=== PATIENT | male | born 1940 | race Caucasian/White ===

== ENCOUNTER 2019-11-24 03:48 | Emergency (ER) | payer MEDICARE ==
[~2019-11-24] VITALS: Ht 188 cm; Wt 118.2 kg
[2019-11-24 05:06] LABS: BASOPHILS % (AUTO) 0.5 % (0-1); EOSINOPHILS % (AUTO) 0.5 % (0-6); HEMATOCRIT 41.4 % (42.0-52.0); HEMOGLOBIN 14.2 g/dl (14.0-17.9); LYMPHOCYTES # (AUTO) 1.3 X10'3 (1.1-4.8); LYMPHOCYTES % (AUTO) 26.6 % (21-51); MEAN CORPUSCULAR HEMOGLOBIN 32.3 PG (27.0-31.0); MEAN CORPUSCULAR HGB CONC 34.2 g/dL (33.0-36.5); MEAN CORPUSCULAR VOLUME 94.5 FL (78-98); MEAN PLATELET VOLUME 8.5 FL (7.4-10.4); MONOCYTES # (AUTO) 0.7 X10'3 (0-0.9); MONOCYTES % (AUTO) 13.1 % (2-12); NEUTROPHILS % (AUTO) 59.3 % (42-75); PLATELET COUNT 100 X10'3 (140-440); RED BLOOD COUNT 4.38 X10'6 (4.70-6.10)
[2019-11-24 05:15] LABS: PARTIAL THROMBOPLASTIN TIME 29 SECONDS (22-32)
[2019-11-24 05:18] LABS: ALANINE AMINOTRANSFERASE 29 U/L (12-78); ALBUMIN 3.5 G/DL (3.4-5.0); ALBUMIN/GLOBULIN RATIO 0.9 (1.1-1.5); ALKALINE PHOSPHATASE 62 IU/L (46-116); ANION GAP 7 (8-16); ASPARTATE AMINO TRANSFERASE 21 U/L (10-37); BILIRUBIN,TOTAL 0.6 MG/DL (0.1-1.0); BLOOD UREA NITROGEN 16 MG/DL (7-18); BUN/CREATININE RATIO 15.5 (5.4-32.0); CALCIUM 8.4 MG/DL (8.5-10.1); CHLORIDE 105 MMOL/L (99-107); CREATININE 1.03 MG/DL (0.60-1.10); GLUCOSE 168 MG/DL (70-104); MAGNESIUM 1.8 MG/DL (1.5-2.4); POTASSIUM 3.9 MMOL/L (3.5-5.1); SODIUM 139 MMOL/L (135-145); TOTAL CARBON DIOXIDE 27.5 MMOL/L (24-32); TOTAL PROTEIN 7.2 G/DL (6.4-8.2); eGFR 70 ML/MIN
[2019-11-24] MEDS ORDERED: normal saline 1000ml 1,000 ML IV ONE (05:31)
[2019-11-24] MEDS ORDERED: normal saline 1000ML IV soln IVB ONE (05:35)
[2019-11-24] MEDS ORDERED: albuterol 2.5 MG/3 ML nebule CONTNEB PRN (05:35)
[2019-11-24] MEDS ORDERED: methylPREDNISolone sod succ 125mg/2ml vial IV ONE (05:35)
[2019-11-24 05:57] VITALS: BP 120/68
[2019-11-24] MEDS ORDERED: LEVO175T7 PO (07:04)
[2019-11-24] MEDS ORDERED: METO100T14 PO (07:04)
[2019-11-24] MEDS ORDERED: METF-438 PO (07:04)
[2019-11-24] MEDS ORDERED: GLIM2TAB3 PO (07:04)
[2019-11-24] MEDS ORDERED: MECL-111 PO (07:04)
[2019-11-24] MEDS ORDERED: GABA600T13 PO (07:04)
[2019-11-24] MEDS ORDERED: FURO40TA4 PO (07:04)
[2019-11-24] MEDS ORDERED: LANTUS SQ (07:04)
[2019-11-24] MEDS ORDERED: RANI-366 PO (07:04)
[2019-11-24] MEDS ORDERED: ESOM40CA49 PO (07:04)
[2019-11-24] MEDS ORDERED: OXYC-658 PO (07:04)
[2019-11-24] MEDS ORDERED: SENN-162 PO (07:04)
[2019-11-24] MEDS ORDERED: ALBU6.7H9 INH (07:20)
[2019-11-24] MEDS ORDERED: PRED20TA PO (07:20)
[2019-11-24] MEDS ORDERED: AZIT250T PO (07:21)
== END 2019-11-24 07:43 | disposition home or self-care (01) ==
LOC: ER 03:49
DX: I95.1 Orthostatic hypotension (principal); J44.1 Chronic obstructive pulmonary disease with (acute) exacerbation; R42 Dizziness and giddiness; I25.10 Atherosclerotic heart disease of native coronary artery without angina pectoris; E78.00 Pure hypercholesterolemia, unspecified; I10 Essential (primary) hypertension; E11.9 Type 2 diabetes mellitus without complications; Z95.0 Presence of cardiac pacemaker; Z98.61 Coronary angioplasty status; F17.200 Nicotine dependence, unspecified, uncomplicated; Z98.890 Other specified postprocedural states; Z88.5 Allergy status to narcotic agent; Z79.2 Long term (current) use of antibiotics; Z79.4 Long term (current) use of insulin; Z79.899 Other long term (current) drug therapy
CPT/HCPCS: 36415; 71045; 80053; 82948; 83735; 84484; 85025; 85610; 85730; 93005; 94644; 96361; 96374; 99285; J2930; J7030; J7050; 94640; 94760

== ENCOUNTER 2020-09-28 11:15 | Emergency (ER) | payer BC, MEDICARE ==
[~2020-09-28] VITALS: Ht 188 cm; Wt 122.7 kg
[~2020-09-28 11:15] MED LIST: ALBU6.7H9 INH; ESOM40CA49 PO; FURO40TA4 PO; GABA600T13 PO; GLIM2TAB6 PO; LANTUS SQ; LEVO175T7 PO; MECL-159 PO; METF-438 PO; METO100T14 PO; OXYC-658 PO; RANI-366 PO; SENN-263 PO
[2020-09-28] MEDS ORDERED: aspirin 81mg tab.chew PO ONE (11:25)
--- NOTE | 2020-09-28 11:31 | NUR ---
[employer] pacemaker
[2020-09-28 12:05] LABS: BASOPHILS % (AUTO) 0.7 % (0-1); EOSINOPHILS # (AUTO) 0.1 X10'3 (0-0.9); EOSINOPHILS % (AUTO) 1.2 % (0-6); HEMOGLOBIN 11.4 g/dl (14.0-17.9); LYMPHOCYTES # (AUTO) 1.4 X10'3 (1.1-4.8); LYMPHOCYTES % (AUTO) 24.2 % (21-51); MEAN CORPUSCULAR HEMOGLOBIN 26.7 PG (27.0-31.0); MEAN CORPUSCULAR HGB CONC 31.6 g/dL (33.0-36.5); MEAN CORPUSCULAR VOLUME 84.5 FL (78-98); MEAN PLATELET VOLUME 8.4 FL (7.4-10.4); MONOCYTES # (AUTO) 0.5 X10'3 (0-0.9); MONOCYTES % (AUTO) 9.1 % (2-12); NEUTROPHILS # (AUTO) 3.8 X10'3 (1.8-7.7); NEUTROPHILS % (AUTO) 64.8 % (42-75); PLATELET COUNT 166 X10'3 (140-440); RED BLOOD COUNT 4.26 X10'6 (4.70-6.10); RED CELL DISTRIBUTION WIDTH 18.1 % (11.5-14.5); WHITE BLOOD COUNT 5.8 X10'3 (4.5-11.0)
[2020-09-28 12:27] LABS: ALANINE AMINOTRANSFERASE 23 U/L (12-78); ALBUMIN 3.7 G/DL (3.4-5.0); ALBUMIN/GLOBULIN RATIO 0.9 (1.1-1.5); ALKALINE PHOSPHATASE 69 IU/L (46-116); ASPARTATE AMINO TRANSFERASE 20 U/L (10-37); BILIRUBIN,TOTAL 0.5 MG/DL (0.1-1.0); BLOOD UREA NITROGEN 16 MG/DL (7-18); CALCIUM 8.4 MG/DL (8.5-10.1); CREATININE 1.33 MG/DL (0.60-1.10); GLUCOSE 205 MG/DL (70-104); MAGNESIUM 1.4 MG/DL (1.5-2.4); TOTAL CARBON DIOXIDE 27.2 MMOL/L (24-32); TOTAL PROTEIN 7.7 G/DL (6.4-8.2); eGFR 52 ML/MIN
[2020-09-28 13:01] LABS: ANION GAP 10 (8-16); CHLORIDE 101 MMOL/L (99-107); POTASSIUM 3.8 MMOL/L (3.5-5.1); SODIUM 138 MMOL/L (135-145)
[2020-09-28] MEDS: magnesium 2GM in 50ml NS 50 ML IV SCH ×2 (13:11→14:00)
[2020-09-28 13:15] VITALS: BP 125/70
--- NOTE | 2020-09-28 14:15 | NUR ---
Pt called me to bedside, stating IV site is painful. IV site reddened wand warm to touch. IV discontinued, and IV started in R forearm.
[2020-09-28] MEDS ORDERED: MAGN400C PO (14:29)
[2020-09-28] MEDS ORDERED: ROSU40TA PO (22:36)
[2020-09-28] MEDS ORDERED: ASPI-1265 PO (22:36)
[2020-09-28] MEDS ORDERED: LOSA25TA96 PO (22:36)
[2020-09-28] MEDS ORDERED: PANT-47 PO (22:36)
[2020-09-28] MEDS ORDERED: levothyroxine PO (22:36)
[2020-09-28] MEDS ORDERED: APIX2.5T PO (22:36)
== END 2020-09-28 14:45 | disposition home or self-care (01) ==
LOC: ER 11:15
DX: T82.897A Other specified complication of cardiac prosthetic devices, implants and grafts, initial encounter (principal); I48.91 Unspecified atrial fibrillation; E83.42 Hypomagnesemia; I25.10 Atherosclerotic heart disease of native coronary artery without angina pectoris; E78.00 Pure hypercholesterolemia, unspecified; I10 Essential (primary) hypertension; J43.9 Emphysema, unspecified; E11.9 Type 2 diabetes mellitus without complications; Z95.0 Presence of cardiac pacemaker; Z98.890 Other specified postprocedural states; Z88.5 Allergy status to narcotic agent; Z79.899 Other long term (current) drug therapy; Z79.4 Long term (current) use of insulin
CPT/HCPCS: 36415; 71045; 80053; 83735; 83880; 85025; 93005; 96365; 96366; 99285; J3475

== ENCOUNTER 2020-09-28 21:14 | Inpatient (IN) | payer BC, MEDICAID ==
[~2020-09-28] VITALS: Ht 190.5 cm; Wt 91.8 kg
[~2020-09-28 21:14] MED LIST changes: +MAGN400C PO
--- NOTE | 2020-09-28 21:37 | NUR ---
His HR was 252 and his defib shocked him. heard. Pt hollared out.
--- NOTE | 2020-09-28 21:42 | NUR ---
[employer] Implantable defibrillator model [id number] serial : [id number]
[2020-09-28 21:48] LABS: ALANINE AMINOTRANSFERASE 23 U/L (12-78); ALBUMIN 3.5 G/DL (3.4-5.0); ALBUMIN/GLOBULIN RATIO 0.9 (1.1-1.5); ALKALINE PHOSPHATASE 74 IU/L (46-116); ANION GAP 8 (8-16); ASPARTATE AMINO TRANSFERASE 21 U/L (10-37); BILIRUBIN,TOTAL 0.5 MG/DL (0.1-1.0); BLOOD UREA NITROGEN 16 MG/DL (7-18); BUN/CREATININE RATIO 11.1 (5.4-32.0); CALCIUM 8.5 MG/DL (8.5-10.1); CHLORIDE 104 MMOL/L (99-107); CREATININE 1.44 MG/DL (0.60-1.10); GLUCOSE 206 MG/DL (70-104); POTASSIUM 3.7 MMOL/L (3.5-5.1); SODIUM 138 MMOL/L (135-145); TOTAL PROTEIN 7.3 G/DL (6.4-8.2); eGFR 47 ML/MIN
[2020-09-28] MEDS ORDERED: metoprolol tartrate 1mg/ml inj IV ONE (21:55)
--- NOTE | 2020-09-28 21:55 | NUR ---
CALLED ANSWERING SERVICE @21:[address] SOLANO
[2020-09-28 22:01] LABS: BASOPHILS % (AUTO) 0.7 % (0-1); EOSINOPHILS # (AUTO) 0.1 X10'3 (0-0.9); EOSINOPHILS % (AUTO) 1.3 % (0-6); HEMATOCRIT 34.2 % (42.0-52.0); LYMPHOCYTES # (AUTO) 1.6 X10'3 (1.1-4.8); LYMPHOCYTES % (AUTO) 25.8 % (21-51); MEAN CORPUSCULAR HEMOGLOBIN 27.1 PG (27.0-31.0); MEAN CORPUSCULAR HGB CONC 32.2 g/dL (33.0-36.5); MEAN CORPUSCULAR VOLUME 84.3 FL (78-98); MEAN PLATELET VOLUME 8.4 FL (7.4-10.4); MONOCYTES # (AUTO) 0.7 X10'3 (0-0.9); MONOCYTES % (AUTO) 10.4 % (2-12); NEUTROPHILS # (AUTO) 3.9 X10'3 (1.8-7.7); NEUTROPHILS % (AUTO) 61.8 % (42-75); PLATELET COUNT 152 X10'3 (140-440); RED BLOOD COUNT 4.06 X10'6 (4.70-6.10); RED CELL DISTRIBUTION WIDTH 18.2 % (11.5-14.5); WHITE BLOOD COUNT 6.4 X10'3 (4.5-11.0)
[2020-09-28] MEDS ORDERED: amiodarone 150mg/dext, iso-os 100 ML IV ONE (22:15)
[2020-09-28] MEDS ORDERED: potassium CL 10mEq/100ml bag 100 ML IV PRN ×2 (22:25)
[2020-09-28] MEDS ORDERED: magnesium 4gm in 100ml NS 100 ML IV PRN (22:25)
[2020-09-28] MEDS ORDERED: magnesium hydroxide 30ml (MOM) UD suspension PO PRN (22:25)
[2020-09-28] MEDS ORDERED: ondansetron/PF 4mg/2ml inj IV PRN (22:25)
[2020-09-28] MEDS ORDERED: mag hydrox/Alum hydrox/simeth 30ml oral suspension PO PRN (22:25)
[2020-09-28] MEDS ORDERED: acetaminophen 325mg tablet PO PRN ×2 (22:25)
[2020-09-28] MEDS ORDERED: magnesium 2GM in 50ml NS 50 ML IV PRN (22:25)
[2020-09-28] MEDS ORDERED: potassium Cl 20 mEq SR tablet PO PRN ×2 (22:25)
[2020-09-28] MEDS ORDERED: magnesium Cl slow-release 64mg tablet PO PRN (22:25)
[2020-09-28] MEDS ORDERED: levothyroxine PO (22:36)
[2020-09-28] MEDS ORDERED: LOSA25TA96 PO (22:36)
[2020-09-28] MEDS ORDERED: PANT-47 PO (22:36)
[2020-09-28] MEDS ORDERED: ASPI-1265 PO (22:36)
[2020-09-28] MEDS ORDERED: APIX2.5T PO (22:36)
[2020-09-28] MEDS ORDERED: ROSU40TA PO (22:36)
[2020-09-28] MEDS: amiodarone/D5 360MG/200ML BAG 200 ML IV SCH (22:42)
--- NOTE | 2020-09-28 23:31 | NUR ---
Patient in room ED 5. I have received report from Carlene ESCALANTE and had the opportunity to ask questions and assume patient care.
[2020-09-28] MEDS ORDERED: albuterol 2.5 MG/3 ML nebule NEB PRN (23:45)
[2020-09-28] MEDS ORDERED: dextrose 50%-water 50ml dispensing syringe IV PRN ×2 (23:50)
[2020-09-28] MEDS ORDERED: MESSAGE TO PHARMACY PO ONE (23:50)
[2020-09-28] MEDS ORDERED: dextrose ORAL solution 15 GM/59 ML bottle PO PRN ×2 (23:50)
[2020-09-28] MEDS ORDERED: insulin Lispro (HumaLOG) vial - multi-dose SQ SCH (23:50)
[2020-09-28] MEDS ORDERED: glucagon, human recombinant 1mg kit SUBCUT PRN (23:50)
[2020-09-29] VITALS (16 sets, daily range): BP systolic 105–175; BP diastolic 50–97
--- NOTE | 2020-09-29 | NUR ---
Pt. arrived via gurney fr/ED in no acute distress. Ambulated to PCU bed, 3014B, w/standby assist. Gait slightly unsteady. Assisted to BR f/void and lge BM. Amiodarone Drip infusing as ordered, currently on 2nd bag, 1mg/min (33mls). This was initiated in the ED following the inf of the loading dose. Pt. oriented to bed, room, and surroundings. VS taken and stable. POC reviewed w/pt and rationale f/Amiodarone treatment explained w/good understanding.
[2020-09-29 03:35] LABS: BASOPHILS # (AUTO) 0.1 X10'3 (0-0.2); BASOPHILS % (AUTO) 1.1 % (0-1); EOSINOPHILS # (AUTO) 0.1 X10'3 (0-0.9); EOSINOPHILS % (AUTO) 1.1 % (0-6); HEMATOCRIT 31.3 % (42.0-52.0); HEMOGLOBIN 10.1 g/dl (14.0-17.9); LYMPHOCYTES # (AUTO) 1.4 X10'3 (1.1-4.8); LYMPHOCYTES % (AUTO) 28.8 % (21-51); MEAN CORPUSCULAR HEMOGLOBIN 27.3 PG (27.0-31.0); MEAN CORPUSCULAR HGB CONC 32.4 g/dL (33.0-36.5); MEAN CORPUSCULAR VOLUME 84.4 FL (78-98); MEAN PLATELET VOLUME 8.3 FL (7.4-10.4); MONOCYTES # (AUTO) 0.5 X10'3 (0-0.9); NEUTROPHILS # (AUTO) 2.8 X10'3 (1.8-7.7); PLATELET COUNT 129 X10'3 (140-440); RED CELL DISTRIBUTION WIDTH 18.4 % (11.5-14.5); WHITE BLOOD COUNT 4.8 X10'3 (4.5-11.0)
[2020-09-29 03:55] LABS: ALANINE AMINOTRANSFERASE 20 U/L (12-78); ALBUMIN 3.2 G/DL (3.4-5.0); ALBUMIN/GLOBULIN RATIO 0.9 (1.1-1.5); ALKALINE PHOSPHATASE 72 IU/L (46-116); ANION GAP 5 (8-16); ASPARTATE AMINO TRANSFERASE 17 U/L (10-37); BILIRUBIN,TOTAL 0.3 MG/DL (0.1-1.0); BLOOD UREA NITROGEN 16 MG/DL (7-18); BUN/CREATININE RATIO 11.9 (5.4-32.0); CALCIUM 8.7 MG/DL (8.5-10.1); CHLORIDE 107 MMOL/L (99-107); CREATININE 1.34 MG/DL (0.60-1.10); GLUCOSE 167 MG/DL (70-104); POTASSIUM 3.8 MMOL/L (3.5-5.1); SODIUM 140 MMOL/L (135-145); TOTAL CARBON DIOXIDE 27.9 MMOL/L (24-32); TOTAL PROTEIN 6.8 G/DL (6.4-8.2); eGFR 51 ML/MIN
[2020-09-29 03:58] LABS: MAGNESIUM 1.7 MG/DL (1.5-2.4)
[2020-09-29] MEDS: amiodarone/D5 360MG/200ML BAG 200 ML IV SCH ×4 (04:43→23:02)
--- NOTE | 2020-09-29 06:15 | NUR ---
Patient in room PCU 3014. I have received report from LINDA ESCALANTE and had the opportunity to ask questions and assume patient care.
--- NOTE | 2020-09-29 06:30 | NUR ---
Patient in room PCU 3014. I have received report from BORIS Shearer and had the opportunity to ask questions and assume patient care. Patient awake in bed and in no acute distress.
--- NOTE | 2020-09-29 06:40 | NUR ---
Problems reprioritized. Patient report given, questions answered & plan of care reviewed with Calli ESCALANTE.
[2020-09-29] MEDS: K and/or MAG REPLACEMENT MC SCH ×2 (08:00→20:00)
[2020-09-29] MEDS: losartan 50mg tablet PO SCH (08:43)
[2020-09-29] MEDS: atorvastatin 10mg tablet PO SCH (08:44)
[2020-09-29] MEDS: gabapentin 300mg capsule PO SCH ×4 (08:44→20:10)
[2020-09-29] MEDS: furosemide 40mg tablet PO SCH (08:44)
[2020-09-29] MEDS: aspirin 81mg tab.chew PO SCH (08:44)
[2020-09-29] MEDS: levoTHYROXINE 175mcg tablet PO SCH (08:44)
[2020-09-29] MEDS: apixaban 2.5mg tablet PO SCH ×2 (08:44→20:10)
[2020-09-29] MEDS: metoprolol succinate 25mg (24-HOUR) SR. Tablet PO SCH (08:45)
--- NOTE | 2020-09-29 10:01 | NUR ---
Paged Dr. Palma regarding patient refusing insulin. PAGER ID: [phone] MESSAGE: [phone]. LJ NIXON. PATIENT REFUSED INSULIN FOR AM DOSE. THANK YOU. JAREN ESCALANTE X [phone]
[2020-09-29] MEDS ORDERED: ondansetron 4mg rapidly disintigrating tab PO PRN (12:00)
--- NOTE | 2020-09-29 13:41 | NUR ---
Pt with T2DM, current A1c is 8.5%. Written DM education and RD contact information placed in patient's chart. Pt on a CHO controlled diet documented with 75-100% PO intake meeting estimated nutrient needs. Will continue to follow. Addendum: 09/29/20 at [address] Amended: Links added.
--- NOTE | 2020-09-29 14:41 | NUR ---
PAGER ID: [phone] MESSAGE: [phone] NIXON IS ON AMIO GTT HIS QT IS NOW 0 .44. PLEASE ADVISE. MERLE FAY
--- NOTE | 2020-09-29 18:15 | NUR ---
[employer] documentation: I have reviewed and agree with all interventions, assessments performed and documented by BORIS Adams. [employer] Medication Administration: For this medication-pass time frame, all medication were reviewed, dispensed, administered and documented per hospital policy by BORIS Adams.
--- NOTE | 2020-09-29 18:22 | NUR ---
Problems reprioritized. Patient report given, questions answered & plan of care reviewed with BORIS NEVES.
[2020-09-29] MEDS ORDERED: ipratropium/albuterol 3ml nebule NEB PRN (18:55)
--- NOTE | 2020-09-29 20:00 | NUR ---
Taking over the care of this patient from Brandy ESCALANTE. Patient is refusing hyperglycemic treatment with Humalog Insulin PC. Education regarding diabetic, nursing protocols and subsequent rationale explained. Pt seems to understand this nurse and states will accept future treatment.
[2020-09-29] MEDS: oxyCODONE IR 5mg (immed. release) tablet PO PRN (20:12)
[2020-09-29] MEDS ORDERED: insulin glargine (Lantus) pen - multi-dose SQ SCH (21:00)
--- NOTE | 2020-09-29 22:30 | NUR ---
Amiodarone Drip restarted and cont. at 0.5mg/minute to new L arm IV site. QTI 0.46 at drip initiating. Monitoring cont., tolerating well. Heart rhythm mostly atrial paced in 60s-70s/min.
[2020-09-30] VITALS: BP 147/71
[2020-09-30] MEDS: oxyCODONE IR 5mg (immed. release) tablet PO PRN (00:34)
[2020-09-30 02:00] VITALS: BP 132/64
[2020-09-30 04:00] VITALS: BP 127/79
[2020-09-30 06:00] VITALS: BP 147/65
[2020-09-30 06:09] LABS: BASOPHILS % (AUTO) 0.8 % (0-1); EOSINOPHILS # (AUTO) 0.1 X10'3 (0-0.9); HEMATOCRIT 33.6 % (42.0-52.0); HEMOGLOBIN 10.8 g/dl (14.0-17.9); LYMPHOCYTES # (AUTO) 1.5 X10'3 (1.1-4.8); LYMPHOCYTES % (AUTO) 27.3 % (21-51); MEAN CORPUSCULAR HEMOGLOBIN 27.2 PG (27.0-31.0); MEAN CORPUSCULAR HGB CONC 32.1 g/dL (33.0-36.5); MEAN CORPUSCULAR VOLUME 84.7 FL (78-98); MEAN PLATELET VOLUME 8.6 FL (7.4-10.4); MONOCYTES # (AUTO) 0.5 X10'3 (0-0.9); MONOCYTES % (AUTO) 8.8 % (2-12); NEUTROPHILS # (AUTO) 3.4 X10'3 (1.8-7.7); NEUTROPHILS % (AUTO) 61.1 % (42-75); PLATELET COUNT 136 X10'3 (140-440); RED BLOOD COUNT 3.97 X10'6 (4.70-6.10); RED CELL DISTRIBUTION WIDTH 18.2 % (11.5-14.5); WHITE BLOOD COUNT 5.6 X10'3 (4.5-11.0)
[2020-09-30] MEDS: amiodarone/D5 360MG/200ML BAG 200 ML IV SCH ×2 (06:16→10:09)
[2020-09-30 06:41] LABS: ALANINE AMINOTRANSFERASE 24 U/L (12-78); ALBUMIN 3.3 G/DL (3.4-5.0); ALBUMIN/GLOBULIN RATIO 0.9 (1.1-1.5); ALKALINE PHOSPHATASE 54 IU/L (46-116); ANION GAP 9 (8-16); ASPARTATE AMINO TRANSFERASE 23 U/L (10-37); BILIRUBIN,TOTAL 0.5 MG/DL (0.1-1.0); BLOOD UREA NITROGEN 15 MG/DL (7-18); BUN/CREATININE RATIO 14.2 (5.4-32.0); CALCIUM 8.5 MG/DL (8.5-10.1); CHLORIDE 105 MMOL/L (99-107); CREATININE 1.06 MG/DL (0.60-1.10); GLUCOSE 176 MG/DL (70-104); MAGNESIUM 1.6 MG/DL (1.5-2.4); POTASSIUM 3.7 MMOL/L (3.5-5.1); SODIUM 141 MMOL/L (135-145); TOTAL CARBON DIOXIDE 27.5 MMOL/L (24-32); eGFR 67 ML/MIN
--- NOTE | 2020-09-30 07:00 | NUR ---
pt is yelling and demanding to go home stateing he is not a prisoner, Pt has taken off tele monitor and requested IV out. BORIS Shearer is speaking to pt. 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
--- NOTE | 2020-09-30 07:00 | NUR ---
Pt. states wants to leave now against medical advice. Found sitting up at bedside pulling off leads and telemetry. Son telephoned this nurse to inquire about father's medical status, necessary information given.
--- NOTE | 2020-09-30 07:41 | NUR ---
Student documentation: I have reviewed and agree with all interventions, assessments performed and documented by Nazario Radford Iron Worker. Student Medication Administration: For this medication-pass time frame, all medication were reviewed, dispensed, administered and documented per hospital policy by Nazario Radford Iron Worker.
--- NOTE | 2020-09-30 07:43 | NUR ---
Problems reprioritized. Patient report given, questions answered & plan of care reviewed with Nanette ESCALANTE.
[2020-09-30] MEDS: K and/or MAG REPLACEMENT MC SCH (08:00)
[2020-09-30] MEDS: aspirin 81mg tab.chew PO SCH (09:08)
[2020-09-30] MEDS: furosemide 40mg tablet PO SCH (09:08)
[2020-09-30] MEDS: apixaban 2.5mg tablet PO SCH (09:08)
[2020-09-30] MEDS: atorvastatin 10mg tablet PO SCH (09:08)
[2020-09-30] MEDS: metoprolol succinate 25mg (24-HOUR) SR. Tablet PO SCH (09:08)
[2020-09-30] MEDS: gabapentin 300mg capsule PO SCH (09:09)
[2020-09-30] MEDS: levoTHYROXINE 175mcg tablet PO SCH (09:09)
[2020-09-30] MEDS: losartan 50mg tablet PO SCH (09:16)
[2020-09-30 11:00] VITALS: BP 153/87
--- NOTE | 2020-09-30 11:23 | NUR ---
PAGER ID: [phone] MESSAGE: ISATU ON [phone], DEMETRIOI, DR. QUINTERO CALLED TO SPEAK WITH RELIGIOUS ACTIVITIES DIRECTOR, HE HAS PUT IN NOTES REGARDING 2194B. THX.
--- NOTE | 2020-09-30 13:31 | NUR ---
pt is leaving AMA has signed the form and taken off all cardiac monitoring. Pt is angry and stating he is not prisoner. I have stopped the Amiodarone drip and removed IV. we have attempted to redirect pt care and educate him on the potential consequences of leaving AMA. Pt gets loud and abusive with language and reiterates he will seek care somewhere else. Pt has refused vitals since AM shift report and has stated " I dont give a shit". Pt will be wheeled down to lobby.
--- NOTE | 2020-09-30 17:34 | NUR ---
occurrence report was filled out for AMA Unique Id: [id number], family was notified of left prescriptions and will pick them up in the AM 10/01/20
--- NOTE | 2020-09-30 19:41 | NUR ---
Patient in room PCU 3014. I have received report from BORIS Shearer and had the opportunity to ask questions and assume patient care.
== END 2020-09-30 13:40 | disposition left against medical advice (07) | DRG 310 ==
LOC: ER 21:15 → ED HOLD 22:24 → PCU 3S 23:50
PROVIDERS: ADMIT Family Medicine; ATTEND Family Medicine
PROC: 4B02XTZ Measurement of Cardiac Defibrillator, External Approach (ICD-10-PCS; principal; 2020-09-28)
DX: I49.01 Ventricular fibrillation (principal); F17.210 Nicotine dependence, cigarettes, uncomplicated; E11.9 Type 2 diabetes mellitus without complications; E78.00 Pure hypercholesterolemia, unspecified; I48.91 Unspecified atrial fibrillation; E78.5 Hyperlipidemia, unspecified; E83.42 Hypomagnesemia; Z53.29 Procedure and treatment not carried out because of patient's decision for other reasons; D64.9 Anemia, unspecified; I10 Essential (primary) hypertension; E66.01 Morbid (severe) obesity due to excess calories; I25.10 Atherosclerotic heart disease of native coronary artery without angina pectoris; J43.9 Emphysema, unspecified; Y71.2 Prosthetic and other implants, materials and accessory cardiovascular devices associated with adverse incidents; Z88.5 Allergy status to narcotic agent; Z79.899 Other long term (current) drug therapy; Z79.4 Long term (current) use of insulin; Z68.25 Body mass index [BMI] 25.0-25.9, adult; Y92.89 Other specified places as the place of occurrence of the external cause
CPT/HCPCS: 36415; 71045; 80053; 82948; 83036; 83735; 83880; 84443; 84484; 85025; 87081; 93005; 94760; 96365; 99285; G0378; J1815; J3490